=== PATIENT | female | born 1975 | race Two or more races ===

== ENCOUNTER 2019-09-28 11:53 | Outpatient (CLI) | payer OTHER | END 2019-09-28 11:57 | disposition home or self-care (01) | LOC: CERTIFICAD 11:53 | PROVIDERS: ATTEND Family Medicine | DX: Z11.1 Encounter for screening for respiratory tuberculosis (principal) ==

== ENCOUNTER → 2019-10-23 08:00 | Outpatient (CLI) | payer OTHER | END | disposition home or self-care (01) | LOC: PPH VACUNA 08:00 | DX: Z23 Encounter for immunization (principal) ==

== ENCOUNTER 2020-01-22 13:58 | Outpatient (CLI) | payer OTHER | END 2020-01-22 15:00 | disposition home or self-care (01) | LOC: PPH VACUNA 13:58 | DX: Z23 Encounter for immunization (principal) ==

== ENCOUNTER 2020-09-11 17:37 | Emergency (ER) | payer OTHER ==
[~2020-09-11] VITALS: Ht 165.1 cm; Wt 74.8 kg
[2020-09-11] MEDS ORDERED: TAMS0.4C PO (21:15)
[2020-09-11] MEDS ORDERED: CORTISPORIN EAR10 M1 OPHT (21:19)
== END 2020-09-11 21:51 | disposition home or self-care (01) ==
LOC: ER 17:37
DX: N20.0 Calculus of kidney (principal); N39.0 Urinary tract infection, site not specified; Z20.822 Contact with and (suspected) exposure to COVID-19

== ENCOUNTER 2020-11-13 10:15 | Outpatient (CLI) | payer OTHER ==
[~2020-11-13 10:15] MED LIST: CORTISPORIN EAR10 M1 OPHT; TAMS0.4C PO
== END 2020-11-13 10:25 | disposition home or self-care (01) ==
LOC: PPH VACUNA 10:15
PROVIDERS: ATTEND Emergency Medicine Pediatric Emergency Medicine
DX: Z23 Encounter for immunization (principal)

== ENCOUNTER 2021-02-19 08:00 | Outpatient (CLI) | payer OTHER | END 2021-02-19 08:30 | disposition home or self-care (01) | LOC: PPH VACUNA 08:00 | PROVIDERS: ATTEND Emergency Medicine Pediatric Emergency Medicine | DX: Z23 Encounter for immunization (principal) ==

== ENCOUNTER 2021-08-12 11:01 | Outpatient (CLI) | payer OTHER | END 2021-08-12 12:13 | disposition home or self-care (01) | LOC: LAB 11:01 | PROVIDERS: ATTEND Internal Medicine Gastroenterology | DX: Z11.52 Encounter for screening for COVID-19 (principal); Z20.822 Contact with and (suspected) exposure to COVID-19; Z20.828 Contact with and (suspected) exposure to other viral communicable diseases ==

== ENCOUNTER 2021-09-17 14:58 | Outpatient (CLI) | payer OTHER | END 2021-09-17 15:08 | disposition home or self-care (01) | LOC: MAMO-SONO 14:58 | PROVIDERS: ATTEND Internal Medicine | DX: Z12.39 Encounter for other screening for malignant neoplasm of breast (principal) ==

== ENCOUNTER 2021-09-18 07:33 | Outpatient (CLI) | payer OTHER | END 2021-09-18 09:59 | disposition home or self-care (01) | LOC: LAB 07:33 | PROVIDERS: ATTEND Internal Medicine | DX: E55.9 Vitamin D deficiency, unspecified (principal); Z12.31 Encounter for screening mammogram for malignant neoplasm of breast; Z13.220 Encounter for screening for lipoid disorders; Z13.29 Encounter for screening for other suspected endocrine disorder ==

== ENCOUNTER 2021-11-13 16:02 | Outpatient (CLI) | payer OTHER | END 2021-11-13 16:04 | disposition home or self-care (01) | LOC: PPH VACUNA 16:02 | PROVIDERS: ATTEND Emergency Medicine Pediatric Emergency Medicine | DX: Z23 Encounter for immunization (principal) ==

== ENCOUNTER 2022-02-24 07:16 | Outpatient (CLI) | payer OTHER | END 2022-02-24 07:21 | disposition home or self-care (01) | LOC: TOM 07:16 | PROVIDERS: ATTEND Internal Medicine | DX: R07.9 Chest pain, unspecified (principal); F17.200 Nicotine dependence, unspecified, uncomplicated ==

== ENCOUNTER 2022-03-08 07:36 | Outpatient (CLI) | payer OTHER | END 2022-03-08 07:37 | disposition home or self-care (01) | LOC: LAB 07:36 | PROVIDERS: ATTEND Internal Medicine Gastroenterology | DX: Z11.52 Encounter for screening for COVID-19 (principal); Z20.822 Contact with and (suspected) exposure to COVID-19; Z20.828 Contact with and (suspected) exposure to other viral communicable diseases ==

== ENCOUNTER → 2022-03-30 09:20 | Outpatient (CLI) | payer OTHER | END | disposition home or self-care (01) | LOC: LAB 09:20 | PROVIDERS: ATTEND Internal Medicine | DX: Z13.220 Encounter for screening for lipoid disorders (principal); Z13.29 Encounter for screening for other suspected endocrine disorder; E55.9 Vitamin D deficiency, unspecified; Z13.1 Encounter for screening for diabetes mellitus ==